=== PATIENT | male | born 1950 | race Caucasian/White ===

== ENCOUNTER 2018-01-04 15:53 | Emergency (ER) | payer OTHER ==
[~2018-01-04] VITALS: Ht 185.4 cm; Wt 92.8 kg
[2018-01-04 15:56] VITALS: TEMP 36.8; Ht 185.4 cm; Wt 92.8 kg
[2018-01-04 16:32] LABS: BASO % 0.2 %; BASO ABS # 0.01 K/uL (0-0.2); EOS ABS # 0.38 K/uL (0-0.5); HEMATOCRIT 39.8 % (42-52); HEMOGLOBIN 13.2 g/dL (14.0-18.0); LYMPH % 25.4 %; LYMPH ABS # 1.38 K/uL (1.2-3.4); MEAN CELL VOLUME 85.4 fL (80-100); MEAN CORPUSCULAR HEMOGLOBIN 28.3 pg (25-34); MEAN CORPUSCULAR HGB CONC 33.2 g/dl (32-36); MEAN PLATELET VOLUME 10.4 fL (7.4-10.4); MONO % 6.4 %; MONO ABS # 0.35 K/uL (0.11-0.59); NEUT ABS # 3.31 K/uL (1.4-6.5); PLATELET COUNT 202 K/uL (130-400); RED CELL DISTRIBUTION WIDTH CV 16.4 % (11.5-14.5); RED CELL DISTRIBUTION WIDTH SD 51.3 fL (36.4-46.3); WHITE BLOOD COUNT 5.43 K/uL (4.8-10.8)
[2018-01-04 17:01] LABS: CALCIUM 8.9 mg/dl (8.5-10.1); CREATININE 0.99 mg/dl (0.60-1.40); POTASSIUM 3.6 mmol/L (3.5-5.1)
[2018-01-04] MEDS ORDERED: ASPI81TA28 PO (17:21)
[2018-01-04] MEDS ORDERED: ACET-1256 PO (17:21)
[2018-01-04] MEDS ORDERED: CALC500C3 PO (17:21)
[2018-01-04] MEDS ORDERED: APIXABAN 2.5 MG TAB PO STA (17:35)
[2018-01-04] MEDS ORDERED: APIX1TAB3 PO (17:38)
--- NOTE | 2018-01-04 17:40 | EMERGENCY ROOM VISIT NOTE ---
History Report prepared by Sp: Georgette Ngo Under the Supervision of: Dr. Devang Lizama M.D. First contact with patient: 16:00 Chief Complaint: ABNORMAL DIAGNOSTIC TESTING Stated Complaint: LEG SWELLING History of Present Illness The patient is a 67 year old male who presents to the Emergency Room with complaints of persistent leg swelling starting 3 weeks ago. The patient injured his right leg in a skiing accident 9 weeks ago. He had surgeries on his leg and was in [place] where the accident occurred for 5 weeks before he was well enough to travel home. He followed up with [facility] today with leg swelling. He had an outpatient ultrasound which found bilateral DVT. He started having increased swelling which he attributed to being on his feet more. The swelling would improve with elevation of his legs. He has been walking with crutches for the past 3 weeks. He denies any leg pain, chest pain, SOB, nausea, vomiting, diarrhea, fever, or chills. He denies any history of blood clots. He is currently on a baby aspirin, but no other blood thinners. He denies any history of GI bleed. Source of History: patient Onset: 3 weeks ago Position: leg (bilateral) Quality: other (swelling) Timing: other (persistent) Associated Symptoms: No fevers, No chills, No chest pain, No SOB, No nausea , No vomiting, No diarrhea Review of Systems See HPI for pertinent positives and negatives. A total of ten systems were reviewed and were otherwise negative. Past Medical & Surgical No history of GI bleed. Family History No pertinent family history stated. Social History Smoking Status: Never Smoker Marital Status: Occupation Status: retired Current/Historical Medications Scheduled Apixaban (Eliquis), 5 MG PO BID Aspirin (Aspirin Ec), 81 MG PO 5XWK Scheduled PRN Acetaminophen (Tylenol), 500 MG PO UD PRN for Pain Calcium Carbonate (Tums), 1 DOSE PO UD PRN for PRN Allergies Coded Allergies: Fish (Unverified Allergy, Intermediate, ANAPHYLAXIS, 01/04/18) PT STATES ALL KINDS OF FISH. Physical Exam Vital Signs Date Time Temp Pulse Resp B/P (MAP) Pulse Ox O2 Delivery O2 Flow Rate FiO2 01/04/18 18:09 75 18 158/96 100 Room Air 01/04/18 17:40 77 18 168/84 100 Room Air 01/04/18 15:56 36.8 82 16 168/97 98 Room Air Physical Exam GENERAL: Awake, alert, well-appearing, in no distress HENT: Normocephalic, atraumatic. Oropharynx unremarkable. EYES: Normal conjunctiva. Sclera non-icteric. NECK: Supple. No nuchal rigidity. FROM. No JVD. RESPIRATORY: Clear to auscultation. CARDIAC: Regular rate, normal rhythm. Extremities warm and well perfused. Pulses equal. ABDOMEN: Soft, non-distended. No tenderness to palpation. No rebound or guarding. No masses. RECTAL: Deferred. MUSCULOSKELETAL: Chest examination reveals no tenderness. The back is symmetrical on inspection without obvious abnormality. There is no CVA tenderness to palpation. No joint edema. LOWER EXTREMITIES: Calves are equal size bilaterally and non-tender. 2+ edema. No erythema or warmth. NEURO: Normal sensorium. No sensory or motor deficits noted. SKIN: No rash or jaundice noted. Medical Decision & Procedures Laboratory Results 01/04/18 16:19 Red Blood Count 4.66, Mean Corpuscular Volume 85.4, Mean Corpuscular Hemoglobin 28.3, Mean Corpuscular Hemoglobin Concent 33.2, Mean Platelet Volume 10.4, Neutrophils (%) (Auto) 61.0, Lymphocytes (%) (Auto) 25.4, Monocytes (%) (Auto) 6.4, Eosinophils (%) (Auto) 7.0, Basophils (%) (Auto) 0.2, Neutrophils # (Auto) 3.31, Lymphocytes # (Auto) 1.38, Monocytes # (Auto) 0.35, Eosinophils # (Auto) 0.38, Basophils # (Auto) 0.01 01/04/18 16:19 Test 01/04/18 16:19 White Blood Count 5.43 K/uL (4.8-10.8) Red Blood Count 4.66 M/uL (4.7-6.1) Hemoglobin 13.2 g/dL (14.0-18.0) Hematocrit 39.8 % (42-52) Mean Corpuscular Volume 85.4 fL (80-100) Mean Corpuscular Hemoglobin 28.3 pg (25-34) Mean Corpuscular Hemoglobin Concent 33.2 g/dl (32-36) Platelet Count 202 K/uL (130-400) Mean Platelet Volume 10.4 fL (7.4-10.4) Neutrophils (%) (Auto) 61.0 % Lymphocytes (%) (Auto) 25.4 % Monocytes (%) (Auto) 6.4 % Eosinophils (%) (Auto) 7.0 % Basophils (%) (Auto) 0.2 % Neutrophils # (Auto) 3.31 K/uL (1.4-6.5) Lymphocytes # (Auto) 1.38 K/uL (1.2-3.4) Monocytes # (Auto) 0.35 K/uL (0.11-0.59) Eosinophils # (Auto) 0.38 K/uL (0-0.5) Basophils # (Auto) 0.01 K/uL (0-0.2) RDW Standard Deviation 51.3 fL (36.4-46.3) RDW Coefficient of Variation 16.4 % (11.5-14.5) Immature Granulocyte % (Auto) 0.0 % Immature Granulocyte # (Auto) 0.00 K/uL (0.00-0.02) Anion Gap 6.0 mmol/L (3-11) Est Creatinine Clear Calc Drug Dose 84.1 ml/min Estimated GFR () 92.2 Estimated GFR (Non- 79.6 BUN/Creatinine Ratio 14.2 (10-20) Calcium Level 8.9 mg/dl (8.5-10.1) Laboratory results reviewed by me Medications Administered Medications (Trade) Dose Ordered Sig/Karely Route Start Time Stop Time Status Last Admin Dose Admin Apixaban (Eliquis Tab) 10 mg NOW STAT PO 01/04/18 17:35 01/04/18 17:36 DC 01/04/18 18:12 10 MG ED Course 1614: The patient was evaluated in room A3. A complete history and physical exam was performed. 1744: I reevaluated the patient. Discussed results and discharge instructions: He verbalized understanding and agreement. The patient is ready for discharge. Medical Decision I reviewed the patient's past medical history, medications, and the nursing notes as described above. Differential diagnosis: DVT, superficial thrombophlebitis, fracture, cellulitis. The patient is a 67-year-old gentleman with a past medical history of a recent femoral fracture when skiing 9 weeks ago status post surgery who presents to the ED after being evaluated at his orthopedic follow-up and had outpatient duplex demonstrating bilateral lower extremity DVTs including bilateral popliteal and superficial femoral veins per hpi. Patient denies any infectious symptoms, chest pain, shortness of breath. On arrival patient is well- appearing in no acute distress, afebrile stable vital signs. She has bilateral lower leg edema without erythema warmth or tenderness. Outpatient duplexes were reviewed in [facility]. CBC and BMP completed to assess for options for anticoagulation. Labs unremarkable. The patient denies any history of GI bleeding/IBD. Extensive conversation was had with the patient regarding options for anticoagulation weighing the risks and benefits of reversibility and regular monitoring and we agreed to proceed with treatment with Eliquis. Pharm.D. assisting in educating the patient. Patient was given first dose of Eliquis here in the ED and provided with 30 day initial voucher. Will follow up with his PCP for further discussion. Recommended to hold his daily baby aspirin while on Eliquis until he discusses this with his doctor. Findings and plan for follow-up reviewed with patient. Patient agreeable and d/c'd per discharge instructions. Medication Reconcilliation Current Medication List: was personally reviewed by me Blood Pressure Screening Patient's blood pressure: Elevated blood pressure Blood pressure disposition: Referred to PCP Impression Primary Impression: DVT, bilateral lower limbs Scribe Attestation The scribe's documentation has been prepared under my direction and personally reviewed by me in its entirety. I confirm that the note above accurately reflects all work, treatment, procedures, and medical decision making performed by me. Departure Information Dispostion Home / Self-Care Prescriptions Apixaban (ELIQUIS) 5 Mg Tab 5 MG PO BID for 30 Days, #74 TAB 10 mg twice daily for 7 days, followed by 5 mg twice daily Prov: Devang Lizama M.D. 01/04/18 Referrals No Doctor, Assigned (PCP) Patient Instructions ED DVT, My [facility] Additional Instructions Please follow up with your primary care physician in the next 1-3 days for re- evaluation. You were found to blood clots in both your legs. Otherwise, your exam and lab results did not show signs of an emergent condition at this time. Take Eliquis as directed. Eliquis is a blood thinner and so you should avoid use of other medications which may increase the risk of bleeding such as ibuprofen. Return to the emergency department for worsening symptoms as described in the accompanying instructions.
[2018-01-04 18:09] VITALS: BP 158/96; PULSE 75; O2SAT 100
--- NOTE | 2018-01-04 18:40 | Pharmacy Progress Note ---
ED Pharmacist Counseling Note Date of Service: January 04, 2018. I spent 15 minutes with the patient explaining Eliquis. Adverse effects, drug interactions, and other pertinent drug information were reviewed with the patient. All of the patient's questions and concerns were address.
== END 2018-01-04 18:28 | disposition home or self-care (01) ==
LOC: C.EDB 15:54 → C.EDA 18:28
DX: I82.4Z3 Acute embolism and thrombosis of unspecified deep veins of distal lower extremity, bilateral (principal)

== ENCOUNTER → 2018-01-04 | Outpatient (CLI) | payer OTHER ==
[~2018-01-04] MED LIST: ACET-1256 PO; APIX1TAB3 PO; ASPI81TA28 PO; CALC500C3 PO
--- NOTE | 2018-01-04 14:50 | DIAGNOSTIC IMAGING REPORT ---
ULTRASOUND BILATERAL LOWER EXTREMITY VENOUS CLINICAL HISTORY: Lower extremity edema COMPARISON STUDY: No priors. TECHNIQUE: Real-time, grayscale, and color Doppler sonography of the deep veins of the right and left lower extremity was performed from the inguinal crease to the calf. Compression and augmentation were utilized. FINDINGS: Right lower extremity: There is nearly occlusive deep venous thrombosis identified in the right lower extremity extending from the mid superficial femoral vein in the popliteal vein and the catheter. The common femoral and proximal superficial femoral veins are patent and normally compressible. The greater saphenous vein and the profunda femoris vein at the junction with the common femoral vein are clear. Left lower extremity: There is newly occlusive to occlusive deep venous thrombosis identified in the left lower extremity, which extends from the distal superficial femoral vein and into the popliteal vein and calf. The common femoral vein and the proximal to mid portions of the superficial femoral vein are patent and normally compressible. The greater saphenous vein and the profunda femoris vein at the junction with the common femoral vein are clear. IMPRESSION: Bilateral lower extremity deep venous thrombosis as above. Electronically signed by: Galen Devlin M.D. 01/04/2018 2:49 PM Dictated Date/Time: 01/04/2018 2:47 PM
== END | disposition home or self-care (01) ==
LOC: C.ULTRBC 14:07
PROVIDERS: ATTEND Physician Assistant
DX: M79.89 Other specified soft tissue disorders (principal); T82.868A Thrombosis due to vascular prosthetic devices, implants and grafts, initial encounter; X58.XXXA Exposure to other specified factors, initial encounter; I82.413 Acute embolism and thrombosis of femoral vein, bilateral; I82.433 Acute embolism and thrombosis of popliteal vein, bilateral